=== PATIENT | male | born 1970 | race Hispanic/Latino ===

== ENCOUNTER 2017-11-10 17:24 | Emergency (ER) | payer OTHER, SELFPAY | END 2017-11-10 18:05 | disposition home or self-care (01) | LOC: NAV ERS 17:24 | DX: M77.12 Lateral epicondylitis, left elbow (principal); I10 Essential (primary) hypertension; E11.9 Type 2 diabetes mellitus without complications; F17.210 Nicotine dependence, cigarettes, uncomplicated; Z71.6 Tobacco abuse counseling; Z79.899 Other long term (current) drug therapy; Z79.84 Long term (current) use of oral hypoglycemic drugs | CPT/HCPCS: 99406 ==